=== PATIENT | female | born 1995 | race Caucasian/White ===

== ENCOUNTER 2024-10-10 11:34 | Emergency (ER) | payer OTHER, SELFPAY ==
[2024-10-10 11:40] VITALS: BP 132/99; PULSE 102; TEMP 37.1; O2SAT 99; BMI 30.2
--- NOTE | 2024-10-10 11:52 | XR_ITS ---
The [address] [address] Patient Name: DANIA PARR MRN: [id number] date: 1995 Sex: F Assigned Patient Location: ER Current Patient Location: ED.MAIN Accession/Order Number: [id number] Exam Date: 10/10/2024 11:55 Report Date: 10/10/2024 12:24 At the request of: EMILY OLEARY Procedure: XR ankle RT min 3V EXAM: XR ankle RT min 3V HISTORY: Twisted COMPARISON: None. TECHNIQUE: 3 views of the right ankle FINDINGS: There is no acute fracture or dislocation. There is a small heel spur. Mild soft tissue swelling. XR/XR ankle RT min 3V IMPRESSION: No acute fracture. Electronically authenticated by: NISHA CUBA Date: 10/10/2024 12:24
--- NOTE | 2024-10-10 11:52 | ED.LOWEXI1 ---
HPI HPI - Extremity Injury (Lower) General Chief Complaint: Extremity Injury, Lower Stated Complaint: lower extremity injury Time Seen by Provider: 10/10/24 11:38 Source: patient Mode of arrival: walk-in History of Present Illness HPI Narrative: 29-year-old female presents to the emergency department for pain in her right ankle. She twisted it at work about 10:00 this morning and has pain and swelling over the lateral malleolus. No other injury was sustained. No pain in the foot. Related Data Home Medications ?Medication ?Instructions ?Recorded ?Confirmed No Known Home Medications 10/10/24 10/10/24 Allergies Allergy/AdvReac Type Severity Reaction Status Date / Time shellfish derived Allergy Mild Hives Verified 10/10/24 11:40 Opioid HPI Opioid Management Most Recent Pain and Opioid Data: No Data to Display Review of Systems ROS Narrative A ten point review of systems is negative except as noted above. PFSH PFSH Social History Little interest or pleasure in doing things: not at all Feeling down, depressed, or hopeless: not at all Exam Narrative Exam Narrative: Nurses note and vital signs reviewed and patient is not hypoxic. General: The patient appears well and in no apparent distress. Patient is resting comfortably on cart. Skin: Warm, dry, no pallor noted. There is no rash noted. Head: Normocephalic, atraumatic Eye: Normal conjunctiva, no drainage Ears, Nose, Mouth, and Throat: oral mucosa is moist. Nares patent. Cardiovascular: Regular Rate and Rhythm Respiratory: Patient is in no distress, no accessory muscle use Back: non-tender GI: Soft and nontender Musculoskeletal: Swelling and tenderness over the lateral malleolus. Skin intact. No tenderness in the foot including the fifth metatarsal area. Neurological: A&O, normal speech Psychiatric: Cooperative Constitutional Vital Signs, click to edit/add: Last Vital Signs Temp 98.8 F 10/10/24 11:40 Pulse 102 H 10/10/24 11:40 Resp 16 10/10/24 11:40 BP 132/99 H 10/10/24 11:40 Pulse Ox 99 10/10/24 11:40 O2 Del Method Room Air 10/10/24 11:40 Course Vital Signs Vital signs: Vital Signs Temperature 98.8 F 10/10/24 11:40 Pulse Rate 102 H 10/10/24 11:40 Respiratory Rate 16 10/10/24 11:40 Blood Pressure 132/99 H 10/10/24 11:40 Pulse Oximetry 99 10/10/24 11:40 Oxygen Delivery Method Room Air 10/10/24 11:40 Temperature 98.8 F 10/10/24 11:40 Pulse Rate 102 H 10/10/24 11:40 Respiratory Rate 16 10/10/24 11:40 Blood Pressure 132/99 H 10/10/24 11:40 Pulse Oximetry 99 10/10/24 11:40 Oxygen Delivery Method Room Air 10/10/24 11:40 MDM - Extremity Injury (Lower) MDM Narrative Medical decision making narrative: X-ray is negative per radiologist. Mario wrap applied, application checked by me and found to be appropriate, she is neurovascular intact. She is placed on crutches. She was recommended ice and ibuprofen. Treatment diagnosis and follow-up were discussed with the patient. Differential Diagnosis Differential diagnosis: Likely ankle sprain and strain and ankle fracture Imaging Data Right ankle x-ray: Radiologist's impression: ITS Impressions Ankle X-Ray 10/10/24 11:52 IMPRESSION: No acute fracture. Electronically authenticated by: NISHA CUBA Date: 10/10/2024 12:24 Discharge Plan Discharge Chief Complaint: Extremity Injury, Lower Clinical Impression: Right ankle sprain Patient Disposition: Home, Self-Care Time of Disposition Decision: 12:37 Condition: Good Mode of Transportation: Private Vehicle Prescriptions / Home Meds: No Action No Known Home Medications Print Language: Bulgarian Instructions: Ankle Sprain (ED) Referrals: Physician,Non-Staff, MD [Primary Care Provider] - 1 week
--- NOTE | 2024-10-10 11:58 | PC.NURSE ---
portable XR at bedside at this time. pt denies current needs and is awaiting results.
== END 2024-10-10 13:01 | disposition home or self-care (01) ==
PROVIDERS: Emergency Provider Emergency Medicine; PCP Family Medicine
DX: S93.401A Sprain of unspecified ligament of right ankle, initial encounter (principal); X50.1XXA Overexertion from prolonged static or awkward postures, initial encounter
CPT/HCPCS: 73610; 99283